=== PATIENT | male | born 1970 | race Caucasian/White ===

== ENCOUNTER 2016-08-01 07:12 | Emergency (ER) | payer BC ==
[~2016-08-01] VITALS: Ht 165.1 cm; Wt 65.8 kg
[2016-08-01] MEDS ORDERED: HYDROCODONE/APAP 5/325MG 1 EACH TABLET ONE (07:48)
[2016-08-01] MEDS ORDERED: HYDROCODONE/APAP 5/325MG 1 EACH TABLET PO ONE (08:00)
[2016-08-01 08:50] VITALS: BP 138/90
== END 2016-08-01 08:59 | disposition home or self-care (01) ==
LOC: ER 07:14
DX: R51 Headache (principal); Z98.890 Other specified postprocedural states
CPT/HCPCS: 70450; 99284; A4606; Z7610